=== PATIENT | female | born 1995 | race Hispanic/Latino ===

== ENCOUNTER 2022-10-09 16:47 | Inpatient (IN) | payer SELFPAY ==
[~2022-10-09] VITALS: Ht 149.9 cm; Wt 104.3 kg
[2022-10-09] MEDS ORDERED: MEPERIDINE-PF 50 MG/ML SYG IVP PRN (17:00)
[2022-10-09] MEDS ORDERED: EPHEDRINE SULFATE 50 MG/ML AMPULE IVP PRN (17:00)
[2022-10-09] MEDS ORDERED: NALOXONE HCL 0.4 MG/1 ML ML IV PRN (17:00)
[2022-10-09] MEDS ORDERED: PROMETHAZINE HCL 25 MG/ML 1ML AMPULE IM PRN (17:00)
[2022-10-09] MEDS ORDERED: ROPIVACAINE 0.2% 100ML VIAL 100 ML EP SCH (17:00)
[2022-10-09] MEDS ORDERED: OXYTOCIN-LR 20 UNITS/1000 ML 1,000 ML IV SCH (17:00)
[2022-10-09] MEDS ORDERED: LACTATED RINGERS 500 ML 500 ML IV PRN (17:00)
[2022-10-09] MEDS: LACTATED RINGERS 1000ML 1,000 ML IV PRN (18:02)
[2022-10-09 18:12] LABS: HEMATOCRIT 35.8 % (36-48); MEAN CORPUSCULAR HEMOGLOBIN 27.3 pg (27.0-33.0); MEAN CORPUSCULAR HGB CONC 33.2 g/dL (32.0-36.0); MEAN CORPUSCULAR VOLUME 82.1 fL (79-99); RED BLOOD CELL COUNT(AUTO) 4.36 MIL/uL (4.00-5.50); RED CELL DISTRIBUTION WIDTH 14.2 % (11.0-15.5); WHITE BLOOD COUNT (AUTO) 10.4 K/uL (4.8-10.8)
[2022-10-09 18:24] LABS: APPEARANCE,URINE CLOUDY (CLEAR); BILIRUBIN,URINE NEGATIVE (NEGATIVE); COLOR,URINE YELLOW (YELLOW); GLUCOSE, URINE (UA) NEGATIVE (NEGATIVE); KETONES,URINE 5 mg/dL (NEGATIVE); LEUKOCYTE ESTERASE ,URINE 500 Leu/uL (NEGATIVE); NITRATE,URINE NEGATIVE (NEGATIVE); OCCULT BLOOD,URINE NEGATIVE (NEGATIVE); PROTEIN,URINE 30 mg/dL (NEGATIVE); UROBILINOGEN,URINE 0.2 mg/dL (0.2-1.0)
[2022-10-09] MEDS: MISOPROSTOL 25 MCG TAB VG SCH ×2 (18:25→22:28)
[2022-10-09 18:27] LABS: INR 0.93 (0.85-1.15); PROTHROMBIN TIME 9.8 SEC (9.6-11.6)
[2022-10-09 18:29] LABS: PARTIAL THROMBOPLASTIN TIME 26.8 SEC (26.3-35.5)
[2022-10-09 18:34] LABS: CREATININE 0.6 mg/dL (0.5-1.5); POTASSIUM 4.1 mmol/L (3.5-5.1)
[2022-10-09 18:35] LABS: BACTERIA,URINE MOD /HPF (None Seen); MUCUS,URINE MANY LPF (None Seen); RBC,URINE 0-1 /HPF (0-1); SQUAMOUS EPITHELIAL CELL,UR MANY /HPF (0-2); WBC,URINE 51-100 /HPF (0-1)
[2022-10-09 18:37] VITALS: BP 110/86
[2022-10-09 18:39] LABS: ALBUMIN 2.5 g/dL (3.5-5.0); TOTAL PROTEIN, SERUM 7.1 g/dL (6.0-8.3); URIC ACID 3.8 mg/dL (2.6-7.2)
[2022-10-10] MEDS: LACTATED RINGERS 1000ML 1,000 ML IV PRN ×2 (01:39→04:33)
[2022-10-10] MEDS: MISOPROSTOL 25 MCG TAB VG SCH (02:38)
[2022-10-10] MEDS ORDERED: OXYTOCIN-LR 20 UNITS/1000 ML 1,000 ML IV SCH (07:00)
[2022-10-10] MEDS ORDERED: CEFAZOLIN SODIUM 1 GM VIAL IVPB PRN (08:00)
[2022-10-10] MEDS ORDERED: CALDOLOR 800MG+NS 250ML 250 ML IV PRN (08:00)
[2022-10-10] MEDS ORDERED: PHENYLEPHRINE HCL 10 MG/ML 1ML VIAL IV ONE (10:11)
[2022-10-10] MEDS ORDERED: PROMETHAZINE HCL 25 MG/ML 1ML AMPULE IM PRN (11:00)
[2022-10-10] MEDS ORDERED: 0.9%NACL 10ML VIAL IVP PRN (11:00)
[2022-10-10] MEDS ORDERED: MEPERIDINE-PF 75 MG/ML SYG IM PRN (11:00)
[2022-10-10] MEDS ORDERED: OXYTOCIN-LR 20 UNITS/1000 ML 1,000 ML IV PRN (11:00)
[2022-10-10] MEDS ORDERED: FENTANYL CITRATE PF 50 MCG/1 ML 2ML VIAL ONE (11:25)
[2022-10-10 12:00] VITALS: BP 111/70
[2022-10-10] MEDS ORDERED: PREN-226 PO (15:06)
[2022-10-10] MEDS ORDERED: ONDANSETRON 4MG INJ IVP PRN (15:30)
[2022-10-10] MEDS ORDERED: DiphenhydrAMINE HCL 50 MG/ML VIAL IV SCH (15:30)
[2022-10-10 16:00] VITALS: BP 99/59
[2022-10-10] MEDS: CALDOLOR 800MG+NS 250ML 250 ML IV SCH (18:17)
[2022-10-10 19:32] VITALS: BP 111/64
[2022-10-10] MEDS ORDERED: ACETAMINOPHEN WITH CODEINE 1 TAB TAB PO PRN (20:30)
[2022-10-10 23:25] VITALS: BP 101/62
[2022-10-10] MEDS: DEXTROSE 5 %-0.45 % NACL 1,000 ML IV PRN (23:44)
[2022-10-11] MEDS: CALDOLOR 800MG+NS 250ML 250 ML IV SCH (03:10)
[2022-10-11 04:11] VITALS: BP 98/56
[2022-10-11] MEDS: DEXTROSE 5 %-0.45 % NACL 1,000 ML IV PRN (06:56)
[2022-10-11 06:58] LABS: HEMATOCRIT 32.1 % (36-48); MEAN CORPUSCULAR HEMOGLOBIN 27.1 pg (27.0-33.0); MEAN CORPUSCULAR HGB CONC 31.8 g/dL (32.0-36.0); MEAN CORPUSCULAR VOLUME 85.4 fL (79-99); RED BLOOD CELL COUNT(AUTO) 3.76 MIL/uL (4.00-5.50); RED CELL DISTRIBUTION WIDTH 14.4 % (11.0-15.5); WHITE BLOOD COUNT (AUTO) 9.9 K/uL (4.8-10.8)
[2022-10-11 07:27] VITALS: BP 95/57
[2022-10-11] MEDS ORDERED: ACETAMINOPHEN 500 MG TABLET PO PRN (09:00)
[2022-10-11] MEDS ORDERED: ACETAMINOPHEN WITH CODEINE 1 TAB TAB PO PRN (09:00)
[2022-10-11] MEDS ORDERED: HYDROCODONE/ACETAMINOPHEN 5/325 MG TAB PO PRN (09:00)
[2022-10-11] MEDS ORDERED: BISACODYL 10 MG SUPP.RECT RC PRN (09:00)
[2022-10-11] MEDS: DOCUSATE SODIUM 100 MG CAP PO SCH ×2 (09:12→21:06)
[2022-10-11] MEDS: SIMETHICONE 80 MG TAB.CHEW PO PRN ×4 (09:12→21:06)
[2022-10-11] MEDS: IBUPROFEN 800 MG TAB PO SCH ×2 (11:17→18:10)
[2022-10-11 12:48] VITALS: BP 119/84
[2022-10-11 16:40] VITALS: BP 115/69
[2022-10-11 19:43] VITALS: BP 118/64
[2022-10-11 23:26] VITALS: BP 101/55
[2022-10-12] MEDS: IBUPROFEN 800 MG TAB PO SCH ×2 (03:19→10:07)
[2022-10-12 03:45] VITALS: BP 127/77
[2022-10-12 07:29] VITALS: BP 96/68
[2022-10-12] MEDS: DOCUSATE SODIUM 100 MG CAP PO SCH (10:07)
[2022-10-12] MEDS: SIMETHICONE 80 MG TAB.CHEW PO PRN (10:07)
[2022-10-12 12:10] VITALS: BP 112/74
== END 2022-10-12 12:45 | disposition home or self-care (01) | DRG 788 ==
LOC: LDH 16:47 → WSH 10-10 12:00
PROVIDERS: ADMIT Obstetrics & Gynecology; ATTEND Obstetrics & Gynecology
PROC: 10D00Z1 Extraction of Products of Conception, Low, Open Approach (ICD-10-PCS; principal; 2022-10-10 09:20)
DX: O99.214 Obesity complicating childbirth (principal); O61.9 Failed induction of labor, unspecified; Z3A.39 39 weeks gestation of pregnancy; Z37.0 Single live birth
CPT/HCPCS: 36415; 59510; 76805; 80053; 81001; 84550; 85027; 85384; 85610; 85730; 86592; 86850; 86900; 86901; 87077; 87088; 87186; 87340; A4344; G0378; J0690; J1741; J2370; J2405; J2590; J3010; J7120